=== PATIENT | female | born 1990 | race Caucasian/White ===

== ENCOUNTER 2016-08-06 11:10 | Emergency (ER) | payer OTHER ==
[~2016-08-06] VITALS: Ht 160 cm; Wt 56.2 kg
[2016-08-06] MEDS ORDERED: HYDROMORPHONE 1 MG/1 ML DISP.SYRIN ONE (11:22)
--- NOTE | 2016-08-06 11:22 | NUR ---
PT A/OX4 BREATHING EFFORTLESSLY ON ROOM AIR, PT STATES SHE HAS BEE HAVING UPPER ABD PAIN X 3 DAYS WITH N/V, PT STATES SHE TOOK ZOFRAN 3 HOURS AGO WITH NO RELIEF, PT ON MONITOR, IN GOWN, IV PLACED, LABS DRAWN, MADE AWARE WILL CONTINUE TO MONITOR.
[2016-08-06] MEDS ORDERED: LORAZEPAM INJ 2 MG/ML VIAL ONE (11:23)
[2016-08-06] MEDS ORDERED: ONDANSETRON HCL/PF 4 MG/2 ML VIAL ONE ×3 (11:23→12:54)
[2016-08-06] MEDS ORDERED: IV NS 0.9% 1,000 ML ONE ×2 (11:23→12:51)
[2016-08-06] MEDS ORDERED: IV SET PRIMARY 1 EA INFUS.SET MC ONE (11:23)
[2016-08-06 11:24] LABS: BASOPHILS % (AUTO) 0.6 % (0.0-2.0); EOSINOPHILS % (AUTO) 0.6 % (0.0-6.0); HEMATOCRIT 44 % (33-45); LYMPHOCYTES # (AUTO) 2.1 /CMM (0.8-4.8); MEAN CORPUSCULAR HEMOGLOBIN 31 PG (26.0-33.0); MEAN CORPUSCULAR HGB CONC 34 g/dl (31.0-36.0); MEAN CORPUSCULAR VOLUME 91 fL (82-100); MONOCYTES # (AUTO) 0.6 /CMM (0.1-1.30); MONOCYTES % (AUTO) 7.7 % (2.0-12.0); NEUTROPHILS % (AUTO) 64.1 % (43.0-81.0); PLATELET COUNT (AUTO) 242 /CMM (150-450); RED BLOOD CELL COUNT(AUTO) 4.84 MIL/uL (4.0-5.2); WHITE BLOOD COUNT (AUTO) 7.7 K/uL (4.3-11.0)
[2016-08-06] MEDS ORDERED: IV NS 0.9% 1,000 ML BAG IV ONE (11:30)
[2016-08-06] MEDS ORDERED: ONDANSETRON HCL/PF 4 MG/2 ML VIAL IVP ONE (11:30)
[2016-08-06] MEDS ORDERED: HYDROMORPHONE INJ 2 MG/ML DISP.SYRIN IV ONE (11:30)
[2016-08-06] MEDS ORDERED: LORAZEPAM INJ 2 MG/ML VIAL IV ONE (11:30)
[2016-08-06 11:38] LABS: ALBUMIN 4.6 g/dL (3.4-5.0); BILIRUBIN,DIRECT 0.2 mg/dL (0.0-0.2); BILIRUBIN,TOTAL 0.9 mg/dL (0.2-1.0); CALCIUM, SERUM 9.3 mg/dL (8.5-10.1); POTASSIUM 3.1 mmol/L (3.5-5.1); TOTAL PROTEIN, SERUM 8.1 g/dL (6.4-8.2)
[2016-08-06] MEDS ORDERED: POTASSIUM CHLORIDE 20 MEQ TAB.PRT.SR PO ONE ×2 (12:30→13:33)
--- NOTE | 2016-08-06 12:30 | NUR ---
PT UP AMB WITH ASSISTANCE TO BR UNABLE TO VOID OK PER MD . IV BOLUS NS AND ZOFRAN 4 MG IVP GIVEN PER MD
[2016-08-06] MEDS ORDERED: IV SET PRIMARY PUMP SET 1 EA INFUS.SET MC ONE (12:51)
[2016-08-06] MEDS ORDERED: IV NS 0.9% 1,000 ML IV ONE (13:00)
[2016-08-06] MEDS ORDERED: ONDANSETRON HCL/PF - ER 4 MG/2 ML VIAL IV ONE (13:00)
--- NOTE | 2016-08-06 13:37 | NUR ---
PT TOLERATED POS WELL NO N/V AT THIS TIME
[2016-08-06 13:39] VITALS: BP 107/64
--- NOTE | 2016-08-06 13:40 | NUR ---
PT. VERBALIZED UNDERSTANDING OF AFTERCARE INSTRUCTIONSt Patient discharged to home in stable condition. Written and verbal after care instructions given. Patient verbalizes understanding of instruction.
== END 2016-08-06 13:41 | disposition home or self-care (01) ==
LOC: ER 11:12
DX: R11.2 Nausea with vomiting, unspecified (principal); E87.6 Hypokalemia; F12.10 Cannabis abuse, uncomplicated; K21.9 Gastro-esophageal reflux disease without esophagitis
CPT/HCPCS: 36415; 80048-TC; 80076-TC; 83690-TC; 84703-TC; 85025-TC; A4606; J1170; J2060; J2405; J7030; Z7610

== ENCOUNTER 2020-03-16 11:30 | Emergency (ER) | payer OTHER ==
[~2020-03-16] VITALS: Ht 157.5 cm; Wt 48.1 kg
--- NOTE | 2020-03-16 11:40 | NUR ---
, from home, c/o nausea vomiting x 6 days and stating getting worse today. Hx gastritis and smoke weeds. no fever. no diarrhea. awaiting for MD medellin
--- NOTE | 2020-03-16 11:56 | NUR ---
BLOOD DRAWN AND SENT TO LAB
[2020-03-16] MEDS ORDERED: HALOPERIDOL LACTATE INJ 5 MG/ML VIAL ONE (11:59)
[2020-03-16] MEDS ORDERED: HALOPERIDOL LACTATE INJ 5 MG/ML VIAL IM ONE (12:00)
[2020-03-16] MEDS ORDERED: IV NS 0.9% 1,000 ML BAG IV ONE (12:00)
[2020-03-16] MEDS ORDERED: PANTOPRAZOLE 40 MG VIAL IV ONE (12:00)
[2020-03-16] MEDS ORDERED: ONDANSETRON HCL/PF 4 MG/2 ML VIAL IVP ONE (12:00)
[2020-03-16] MEDS ORDERED: ONDANSETRON HCL/PF 4 MG/2 ML VIAL ONE (12:06)
[2020-03-16] MEDS ORDERED: PANTOPRAZOLE 40 MG VIAL ONE (12:06)
[2020-03-16 12:09] LABS: BASOPHILS # (AUTO) 0.1 /CMM (0.0-0.2); BASOPHILS % (AUTO) 0.7 % (0.0-2.0); EOSINOPHILS % (AUTO) 0.4 % (0.0-6.0); HEMATOCRIT 43 % (33-45); HEMOGLOBIN 14.6 g/dL (11.5-14.8); LYMPHOCYTES # (AUTO) 1.7 /CMM (0.8-4.8); MEAN CORPUSCULAR HGB CONC 34 g/dl (31.0-36.0); MEAN CORPUSCULAR VOLUME 94 fL (82-100); MONOCYTES # (AUTO) 0.4 /CMM (0.1-1.30); MONOCYTES % (AUTO) 4.7 % (2.0-12.0); NEUTROPHILS # (AUTO) 5.8 /CMM (1.8-8.9); NEUTROPHILS % (AUTO) 73.2 % (43.0-81.0); PLATELET COUNT (AUTO) 264 /CMM (150-450); RED BLOOD CELL COUNT(AUTO) 4.57 MIL/uL (4.0-5.2); WHITE BLOOD COUNT (AUTO) 7.9 K/uL (4.3-11.0)
--- NOTE | 2020-03-16 12:15 | NUR ---
OFFERED TO COLLECT URINE. PT UNABLE TO COLLECT AT THIS TIME
[2020-03-16 12:27] LABS: CALCIUM, SERUM 9.3 mg/dL (8.5-10.1); CREATININE 0.9 mg/dL (0.6-1.3); POTASSIUM 3.7 mmol/L (3.5-5.1)
[2020-03-16 12:34] LABS: ALBUMIN 4.3 g/dL (3.4-5.0); BILIRUBIN,DIRECT 0.1 mg/dL (0.0-0.2); BILIRUBIN,TOTAL 0.4 mg/dL (0.2-1.0); TOTAL PROTEIN, SERUM 7.9 g/dL (6.4-8.2)
[2020-03-16 13:20] VITALS: BP 111/67
== END 2020-03-16 13:21 | disposition home or self-care (01) ==
LOC: ER 11:30
DX: R11.2 Nausea with vomiting, unspecified (principal); F12.10 Cannabis abuse, uncomplicated; K21.9 Gastro-esophageal reflux disease without esophagitis
CPT/HCPCS: 36415; 80048; 80076; 85025; 96361; 96372; 96374; 96375; 99284; C9113; J1630; J2405; J7030

== ENCOUNTER 2022-12-03 23:50 | Emergency (ER) | payer OTHER ==
[~2022-12-03] VITALS: Ht 154.9 cm; Wt 52.2 kg
--- NOTE | 2022-12-03 23:55 | NUR ---
[id number] FROM HOME C/O N/V X7 DAYS, ABD PAIN. AAOX4. ATTACHED TO THE MONITOR.
--- NOTE | 2022-12-03 23:59 | NUR ---
PROVIDE PT WITH URINE CUP; AWAITING SAMPLE
[2022-12-04] MEDS ORDERED: ONDANSETRON HCL/PF 4 MG/2 ML VIAL ONE (00:05)
[2022-12-04] MEDS: IV NS 0.9% 1,000 ML BAG IV ONE (00:15)
--- NOTE | 2022-12-04 00:15 | NUR ---
ESTABLISHED IV LINE AT R AC, 20G. BLOOD DRAWN AND SENT TO LAB.
[2022-12-04] MEDS: ONDANSETRON HCL/PF 4 MG/2 ML VIAL IVP ONE (00:17)
[2022-12-04 00:26] LABS: BASOPHILS % (AUTO) 0.5 % (0.0-2.0); EOSINOPHILS % (AUTO) 2.4 % (0.0-6.0); HEMATOCRIT 39 % (33-45); HEMOGLOBIN 12.9 g/dL (11.5-14.8); LYMPHOCYTES # (AUTO) 2.1 K/uL (0.8-4.8); LYMPHOCYTES % (AUTO) 22.6 % (20.0-44.0); MEAN CORPUSCULAR HGB CONC 33 g/dl (31.0-36.0); MEAN CORPUSCULAR VOLUME 94 fL (82-100); MONOCYTES # (AUTO) 0.6 K/uL (0.1-1.30); MONOCYTES % (AUTO) 6.5 % (2.0-12.0); NEUTROPHILS # (AUTO) 6.4 K/uL (1.8-8.9); PLATELET COUNT (AUTO) 271 K/uL (150-450); RED BLOOD CELL COUNT(AUTO) 4.12 MIL/uL (4.0-5.2); WHITE BLOOD COUNT (AUTO) 9.4 K/uL (4.3-11.0)
[2022-12-04 00:53] LABS: CALCIUM, SERUM 9.4 mg/dL (8.5-10.1); CREATININE 0.7 mg/dL (0.6-1.3); POTASSIUM 3.7 mmol/L (3.5-5.1)
--- NOTE | 2022-12-04 00:54 | NUR ---
PREGNANACY WAIVER SIGNED AND PLACED IN CHART
--- NOTE | 2022-12-04 00:58 | NUR ---
PATIENT TAKEN TO CT BY [facility] VIA GURNEY.
[2022-12-04 00:59] LABS: ALBUMIN 3.8 g/dL (3.4-5.0); BILIRUBIN,DIRECT 0.1 mg/dL (0.0-0.2); BILIRUBIN,TOTAL 0.4 mg/dL (0.2-1.0); TOTAL PROTEIN, SERUM 7.2 g/dL (6.4-8.2)
[2022-12-04] MEDS ORDERED: diphenhydrAMINE HCL 50 MG/ML VIAL ONE (01:18)
[2022-12-04] MEDS ORDERED: HALOPERIDOL LACTATE INJ 5 MG/ML VIAL ONE (01:19)
[2022-12-04] MEDS: HALOPERIDOL LACTATE INJ 5 MG/ML VIAL IM ONE (01:29)
[2022-12-04] MEDS: diphenhydrAMINE HCL 50 MG/ML VIAL IV ONE (01:29)
[2022-12-04] MEDS ORDERED: ONDA4TAB5 PO (03:10)
[2022-12-04 03:24] VITALS: BP 115/70; TEMP 98.5; O2SAT 100
--- NOTE | 2022-12-04 03:25 | NUR ---
IV removed. Catheter intact and site benign. Pressure and 4x4 applied to site. No bleeding noted.
--- NOTE | 2022-12-04 03:25 | NUR ---
Patient discharged to home in stable condition. Written and verbal after care instructions given. Patient verbalizes understanding of instruction.
== END 2022-12-04 03:25 | disposition home or self-care (01) ==
LOC: ER 23:51
DX: F12.10 Cannabis abuse, uncomplicated (principal); R11.2 Nausea with vomiting, unspecified; Z79.899 Other long term (current) drug therapy; Z60.2 Problems related to living alone
CPT/HCPCS: 99285; 36415; 74176; 96374; 96361; 96375; 85025; 80048; 83690; 80076; 84702; 96372; J1200; J1630; J2405

== ENCOUNTER 2023-11-19 10:44 | Emergency (ER) | payer OTHER ==
[~2023-11-19] VITALS: Ht 165.1 cm; Wt 56.7 kg
[~2023-11-19 10:44] MED LIST: ONDA4TAB5 PO
[2023-11-19] MEDS ORDERED: HALOPERIDOL LACTATE INJ 5 MG/ML VIAL ONE (11:01)
[2023-11-19] MEDS: HALOPERIDOL LACTATE INJ 5 MG/ML VIAL IM ONE (11:07)
[2023-11-19 11:21] LABS: PREGNANCY TEST URINE QUAL NEGATIVE (NEGATIVE)
[2023-11-19] MEDS ORDERED: LORAZEPAM INJ 2 MG/ML VIAL ONE (11:34)
[2023-11-19] MEDS: LORAZEPAM INJ 2 MG/ML VIAL IM ONE (11:41)
[2023-11-19] MEDS ORDERED: LORA-259 PO (12:16)
[2023-11-19 12:43] VITALS: BP 103/69; TEMP 98.3; O2SAT 96
== END 2023-11-19 12:46 | disposition home or self-care (01) ==
LOC: ER 10:52
DX: R11.10 Vomiting, unspecified (principal); K21.9 Gastro-esophageal reflux disease without esophagitis; R10.2 Pelvic and perineal pain; Z79.891 Long term (current) use of opiate analgesic; Z60.2 Problems related to living alone
CPT/HCPCS: 99285; 96372 ×2; 84703; J2060; J1630

== ENCOUNTER 2023-11-30 04:01 | Emergency (ER) | payer OTHER ==
[~2023-11-30] VITALS: Ht 152.4 cm; Wt 56.7 kg
[~2023-11-30 04:01] MED LIST changes: +LORA-259 PO
[2023-11-30] MEDS ORDERED: ONDANSETRON HCL/PF 4 MG/2 ML VIAL ONE (04:18)
[2023-11-30] MEDS: ONDANSETRON HCL/PF 4 MG/2 ML VIAL IVP ONE (04:26)
[2023-11-30] MEDS: IV NS 0.9% 1,000 ML BAG IV ONE (04:26)
[2023-11-30 04:28] LABS: BASOPHILS % (AUTO) 0.4 % (0.0-2.0); EOSINOPHILS # (AUTO) 0.1 K/uL (0.0-0.7); EOSINOPHILS % (AUTO) 1.3 % (0.0-6.0); HEMATOCRIT 47 % (33-45); HEMOGLOBIN 15.9 g/dL (11.5-14.8); LYMPHOCYTES # (AUTO) 2.2 K/uL (0.8-4.8); LYMPHOCYTES % (AUTO) 19.6 % (20.0-44.0); MEAN CORPUSCULAR HEMOGLOBIN 32 PG (26.0-33.0); MEAN CORPUSCULAR HGB CONC 34 g/dl (31.0-36.0); MEAN CORPUSCULAR VOLUME 95 fL (82-100); MONOCYTES # (AUTO) 0.8 K/uL (0.1-1.30); MONOCYTES % (AUTO) 7.6 % (2.0-12.0); NEUTROPHILS # (AUTO) 7.9 K/uL (1.8-8.9); NEUTROPHILS % (AUTO) 71.1 % (43.0-81.0); PLATELET COUNT (AUTO) 296 K/uL (150-450); RED BLOOD CELL COUNT(AUTO) 4.92 MIL/uL (4.0-5.2); RED CELL DISTRIBUTION WIDTH 13.6 % (11.5-15.0); WHITE BLOOD COUNT (AUTO) 11.1 K/uL (4.3-11.0)
[2023-11-30 04:44] LABS: ALBUMIN 4.1 g/dL (3.4-5.0); BILIRUBIN,DIRECT 0.1 mg/dL (0.0-0.2); BILIRUBIN,TOTAL 0.5 mg/dL (0.2-1.0); CALCIUM, SERUM 9.9 mg/dL (8.5-10.1); POTASSIUM 3.5 mmol/L (3.5-5.1); TOTAL PROTEIN, SERUM 8.3 g/dL (6.4-8.2)
[2023-11-30 04:56] LABS: APPEARANCE,URINE CLOUDY (CLEAR); BILIRUBIN,URINE 2+ (NEGATIVE); BLOOD, URINE 2+ Ery/uL (NEGATIVE); COLOR,URINE DARK YELLOW (YELLOW); KETONES,URINE 2+ mg/dL (NEGATIVE); LEUKOCYTE ESTERASE ,URINE NEGATIVE (NEGATIVE); NITRITE, URINE NEGATIVE (NEGATIVE); PROTEIN,URINE 1+ mg/dl (NEGATIVE); UGLUCOSE NEGATIVE (NEGATIVE)
[2023-11-30 04:58] LABS: ADD URINE CULTURE YES; BACTERIA,URINE Rare /HPF (None Seen); PREGNANCY TEST URINE QUAL NEGATIVE (NEGATIVE); SQUAMOUS EPITHELIAL CELL,UR Moderate /HPF (None Seen)
[2023-11-30 05:20] VITALS: BP 116/75; TEMP 98; O2SAT 99
== END 2023-11-30 05:21 | disposition home or self-care (01) ==
LOC: ER 04:07
DX: R11.2 Nausea with vomiting, unspecified (principal); F12.10 Cannabis abuse, uncomplicated; K21.9 Gastro-esophageal reflux disease without esophagitis; Z60.2 Problems related to living alone
CPT/HCPCS: 99283; 96374; 96361; 85025; 80048; 87086; 83690; 80076; 84703; 81001; 36415; J2405; J7030

== ENCOUNTER 2024-08-06 03:57 | Emergency (ER) | payer OTHER | END 2024-08-06 04:47 | disposition left against medical advice (07) | LOC: ER 04:16 | DX: R10.9 Unspecified abdominal pain (principal); R11.0 Nausea; Z53.21 Procedure and treatment not carried out due to patient leaving prior to being seen by health care provider ==